=== PATIENT | male | born 1945 | race Caucasian/White ===

== ENCOUNTER 2021-09-18 22:27 | Inpatient (IN) | payer MEDICARE ==
[~2021-09-18] VITALS: Ht 170.2 cm; Wt 86.2 kg
== END 2021-09-19 09:24 | disposition short-term general hospital (02) | DRG 282 ==
LOC: CCU 09-19 01:25 → EDSEX 09-19 09:24 → CCU 09-19 09:24
PROVIDERS: ADMIT Internal Medicine
PROC: 4A023N7 Measurement of Cardiac Sampling and Pressure, Left Heart, Percutaneous Approach (ICD-10-PCS; principal; 2021-09-19)
PROC: B2111ZZ Fluoroscopy of Multiple Coronary Arteries using Low Osmolar Contrast (ICD-10-PCS; 2021-09-19)
DX: I21.19 ST elevation (STEMI) myocardial infarction involving other coronary artery of inferior wall (principal); I25.10 Atherosclerotic heart disease of native coronary artery without angina pectoris; I10 Essential (primary) hypertension; Z20.822 Contact with and (suspected) exposure to COVID-19; E78.5 Hyperlipidemia, unspecified; M10.9 Gout, unspecified; F43.10 Post-traumatic stress disorder, unspecified; Z82.49 Family history of ischemic heart disease and other diseases of the circulatory system
CPT/HCPCS: 36415; 82550; 82553; 84484; 85347; 99152; 99153; C1760; C1769; C1887; C1894; J1644; J2250; J3010; J7040; Q9965